=== PATIENT | female | born 1980 | race Caucasian/White ===

== ENCOUNTER 2017-03-22 19:18 | Emergency (ER) | payer OTHER ==
[~2017-03-22] VITALS: Ht 172.7 cm; Wt 66.1 kg
[2017-03-22 20:56] VITALS: BP 130/55
[2017-03-22] MEDS ORDERED: FLUOXETINE HCL20 MG PO (20:58)
== END 2017-03-22 20:58 | disposition home or self-care (01) ==
LOC: EME 19:18
DX: S09.8XXA Other specified injuries of head, initial encounter (principal); S00.03XA Contusion of scalp, initial encounter; W20.8XXA Other cause of strike by thrown, projected or falling object, initial encounter
CPT/HCPCS: 99281; 99284

== ENCOUNTER → 2017-12-22 | Outpatient (CLI) | payer OTHER ==
[~2017-12-22] MED LIST: FLUOXETINE HCL20 MG PO
== END | disposition home or self-care (01) ==
LOC: CDC 11:30
DX: F90.2 Attention-deficit hyperactivity disorder, combined type (principal); F34.1 Dysthymic disorder; F33.1 Major depressive disorder, recurrent, moderate
CPT/HCPCS: 93000